=== PATIENT | female | born 2000 | race Caucasian/White ===

== ENCOUNTER 2020-05-27 11:07 | Outpatient (REF) | payer OTHER, SELFPAY ==
--- NOTE | 2020-05-27 10:30 | PAPFT_PTH ---
PATIENT: Maria Luisa Perales LOC: [facility] U#:[id number] AGE/SX: 19/F ROOM: RE05/27/[address]: Anitha Navarro NP : 2000 BED: DIS: 05/27/2020 SPEC #: [id number] RECD: 05/27/20 18:26 STATUS: EUGENE HUNTER #: [id number] KAREN: 05/27/20 10:[address]: Anitha Navarro NP DEPT: [facility] Cytology RECD BY: Leeanna Muhammad ENTERED: 05/27/20 18:26 SP TYPE: PAPFT OTHR DR: None Tissues: 1 - CX/ENDOCX FOR PAP SMEARS Procedures: PAP THIN PREP/[facility] Screening Comments: [id number] (CHLAMYDIA/GC)
[2020-05-28 14:10] LABS: Chlamydia Result Negative (Negative); GC Result Negative (Negative)
== END 2020-05-27 11:27 ==
LOC: LBN 11:07
PROVIDERS: Visit Provider Nurse Practitioner Women's Health
DX: Z11.3 Encounter for screening for infections with a predominantly sexual mode of transmission (principal); Z12.4 Encounter for screening for malignant neoplasm of cervix
CPT/HCPCS: 87491; 87591; 88142

== ENCOUNTER 2021-01-02 03:43 | Outpatient (CLI) | payer OTHER, SELFPAY ==
[2021-01-02 07:26] LABS: HCT 42.4 % (36.0-46.0); HGB 14.1 g/dL (11.2-15.7); MCH 30.5 pg (27.0-33.0); MCHC 33.3 % (32.0-36.0); MCV 91.6 fL (80-95); MPV 10.1 fL (8.0-11.0); Platelet Count 180 10^3/uL (130-400); RBC 4.63 10^6/uL (3.93-5.22); RDW 12.7 % (11.7-14.6); RDW-SD 42.8 fL; WBC 4.54 10^3/uL (4.4-10.8)
[2021-01-02 07:41] LABS: Hemoglobin A1C 5.3 % (<5.7)
[2021-01-02 09:38] LABS: ALT 23 U/L (14-59); AST 17 U/L (15-37); Albumin 4.3 g/dL (3.4-5.0); Alkaline Phosphatase 56 U/L (46-116); Anion Gap 10.9 mmol/L (3-11); BUN 16 mg/dL (7-18); Bilirubin, Total 0.4 mg/dL (0.2-1.0); CO2 25.1 mmol/L (21.0-32.0); CREATININE 0.7 mg/dL (0.55-1.02); Calcium 9.1 mg/dL (8.5-10.1); Chloride 105 mmol/L (98-107); Cholesterol 124 mg/dL (<200); Glucose 100 mg/dL (74-106); HDL Cholesterol 72 mg/dL (40-60); Potassium 4.3 mmol/L (3.5-5.1); Sodium 141 mmol/L (136-145); TSH 1.16 uIU/mL (0.36-3.74); Total Protein 7.4 g/dL (6.4-8.2)
[2021-01-02 09:45] LABS: Triglyceride < 25 mg/dL (<150)
[2021-01-02 09:57] LABS: LDL CHOLESTEROL 45 mg/dL (<100)
[2021-01-03 10:45] LABS: HIV-1/2 Ag & Ab Screen Negative (Negative)
== END 2021-01-02 03:44 | disposition home or self-care (01) ==
LOC: LBO 03:43
PROVIDERS: PCP Nurse Practitioner Family; Visit Provider Nurse Practitioner Family
DX: R63.4 Abnormal weight loss (principal); R61 Generalized hyperhidrosis; Z13.1 Encounter for screening for diabetes mellitus; Z13.220 Encounter for screening for lipoid disorders; Z11.4 Encounter for screening for human immunodeficiency virus [HIV]
CPT/HCPCS: 36415; 80053; 80061; 83721; 85027; 87389; 83036; 84443

== ENCOUNTER 2021-08-26 02:16 | Outpatient (CLI) | payer OTHER, SELFPAY ==
[2021-08-27 10:44] LABS: Varicella IgG Antibody Positive (See Note)
[2021-08-27 11:19] LABS: Hep B Core Antibody Negative (Negative)
== END 2021-08-26 02:17 | disposition home or self-care (01) ==
LOC: LBO 02:16
PROVIDERS: PCP Nurse Practitioner Family; Visit Provider Nurse Practitioner Family
DX: Z11.59 Encounter for screening for other viral diseases (principal); Z28.39 Other underimmunization status
CPT/HCPCS: 36415; 86704; 86787

== ENCOUNTER 2021-11-10 16:35 | Outpatient (REF) | payer OTHER, SELFPAY ==
[2021-11-12 11:15] LABS: COVID-19 RT-PCR UVMMC Result Positive (Negative)
== END 2021-11-10 16:36 | disposition home or self-care (01) ==
LOC: LBN 16:35
PROVIDERS: PCP Nurse Practitioner Family; Visit Provider Nurse Practitioner Family
DX: U07.1 COVID-19 (principal)
CPT/HCPCS: U0003

== ENCOUNTER 2023-06-07 03:19 | Outpatient (CLI) | payer OTHER, SELFPAY ==
[2023-06-07 08:01] LABS: Cholesterol 146 mg/dL (<200); HDL Cholesterol 71 mg/dL (40-60); TSH (W/Ref FT4) 1.32 uIU/mL (0.36-3.74)
[2023-06-07 08:12] LABS: Triglyceride <25 mg/dL (<150)
[2023-06-07 11:03] LABS: LDL CHOLESTEROL 64 mg/dL (<100)
== END 2023-06-07 03:20 | disposition home or self-care (01) ==
PROVIDERS: PCP Nurse Practitioner Family; Visit Provider Nurse Practitioner Family
DX: Z13.220 Encounter for screening for lipoid disorders (principal); Z13.29 Encounter for screening for other suspected endocrine disorder
CPT/HCPCS: 36415; 80061; 83721; 84443

== ENCOUNTER 2023-07-05 15:02 | Outpatient (REF) | payer OTHER, SELFPAY ==
--- NOTE | 2023-07-05 12:00 | PAPFT_PTH ---
PATIENT: Maria Luisa Perales LOC: [facility] U#:[id number] AGE/SX: 23/F ROOM: RE07/05/[address]: Sangeeta Hinojosa DO : 2000 BED: DIS: 07/05/2023 SPEC #: [id number] RECD: 07/05/23 17:33 STATUS: EUGENE REQ #: [id number] KAREN: 07/05/23 12:[address]: Sangeeta Hinojosa DEPT: [facility] Cytology RECD BY: Leeanna Muhammad ENTERED: 07/05/23 17:33 SP TYPE: PAPFT OTHR DR: Jose Alejandro Sanchez, BENJAMIN Tissues: 1 - CX/ENDOCX FOR PAP SMEARS Procedures: PAP THIN PREP/[facility] Screening HPV DNA PROBE Comments: [id number] (CHLAMYDIA/GC)
[2023-07-06 13:08] LABS: Chlamydia Result Negative (Negative); GC Result Negative (Negative)
== END 2023-07-05 15:03 | disposition home or self-care (01) ==
LOC: LBN 15:02
PROVIDERS: PCP Nurse Practitioner Family; Visit Provider Obstetrics & Gynecology
DX: Z12.4 Encounter for screening for malignant neoplasm of cervix (principal); Z11.51 Encounter for screening for human papillomavirus (HPV); Z11.3 Encounter for screening for infections with a predominantly sexual mode of transmission
CPT/HCPCS: 87491; 87591; 88142; 87624

== ENCOUNTER 2024-11-13 13:03 | Outpatient (CLI) | payer OTHER, SELFPAY ==
[2024-11-13 11:28] LABS: Kit/Specimen SENT
== END 2024-11-13 13:04 | disposition home or self-care (01) ==
LOC: LBO 13:04
PROVIDERS: PCP Nurse Practitioner Family; Visit Provider Nurse Practitioner Family
DX: Z01.812 Encounter for preprocedural laboratory examination (principal)
CPT/HCPCS: 36415

== ENCOUNTER 2024-12-04 09:31 | Outpatient (CLI) | payer OTHER, SELFPAY ==
--- NOTE | 2024-12-04 08:45 | DI.RAD_ITS ---
Exam(s) XR SACROILIAC JOINTS EXAM: XR SACROILIAC JOINTS CLINICAL HISTORY: 2 weeks low back pain, DORSALGIA, M54.9. TECHNIQUE: 2D digital imaging was performed. COMPARISON: No exams were available for comparison FINDINGS: 3 views No evidence of obvious sacral fracture. The sacroiliac joints appear unremarkable. No obvious radiographic evidence of sacroiliitis and no ankylosis of the SI joints. IMPRESSION: No significant radiograph findings in the sacroiliac joints. However, if there is strong clinical suspicion for sacroiliitis then follow-up dedicated MRI of the sacroiliac joints can be performed for added sensitivity and specificity. DATA REPOSITORY: RADIATION DOSE DELIVERED:
--- NOTE | 2024-12-04 08:45 | DI.RAD_ITS ---
Exam(s) XR LUMBAR SPINE COMPLETE EXAM: XR LUMBAR SPINE COMPLETE CLINICAL HISTORY: Low back pain, DORSALGIA, M54.9. TECHNIQUE: 2D digital imaging was performed. COMPARISON: No exams were available for comparison FINDINGS: Five views No evidence of fracture, listhesis, nor pars interarticularis defects. No disc space narrowing. No obvious facet arthropathy nor obvious sacroiliitis. No significant scoliosis. Bone density normal. No osseous lesions. IMPRESSION: No significant radiograph findings on these five views of the lumbosacral spinal column. DATA REPOSITORY: RADIATION DOSE DELIVERED:
== END 2024-12-04 09:51 ==
LOC: DI 09:31
PROVIDERS: PCP Nurse Practitioner Family; Visit Provider Physician Assistant
DX: M54.9 Dorsalgia, unspecified (principal)
CPT/HCPCS: 72110; 72202